=== PATIENT | male | born 1985 ===

== ENCOUNTER 2020-08-29 12:29 | Emergency (ER) | payer SELFPAY ==
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
== END 2020-08-29 15:29 ==
LOC: EDBD → ED 12:29
DX: S41.041A Puncture wound with foreign body of right shoulder, initial encounter (principal); I46.9 Cardiac arrest, cause unspecified; W34.00XA Accidental discharge from unspecified firearms or gun, initial encounter; Y93.89 Activity, other specified; Y92.89 Other specified places as the place of occurrence of the external cause; Y99.8 Other external cause status
CPT/HCPCS: 92950